=== PATIENT | female | born 1940 | race Caucasian/White ===

== ENCOUNTER → 2018-07-27 16:07 | Outpatient (CLI) | payer MEDICARE, OTHER ==
[2013-12-26 13:19] VITALS: BMI 27.4
[~2018-07-27 16:07] MED LIST: BENADRYL INJ50 MG/ML IM; BOUDREAUXS113 GM TP; CENTRUM SILVER1 TA2 PO; COUMADIN4 MG PO; COUMADIN5 MG PO; COZAAR100 MG PO; DILAUDID4 MG PO; DILAUDID8 MG PO; FISH OIL 1,0001 CA1 PO; METAMUCIL1042 GM PO; MIRALAX17 GM PO; MS CONTIN15 MG PO; MULTI-DAY VITAM1 TAB PO; NARCAN INJ0.4 MG/ML IV; NEXIUM40 MG PO; OMEGA-3100 MG PO; PREMARIN45 GM VG; SENOKOT-S TABLE1 TAB PO; TYLENOL 325 MG325 MG PO; ZOFRAN4 MG PO
== END | disposition home or self-care (01) ==
LOC: D.MAMMO 13:45
DX: Z12.31 Encounter for screening mammogram for malignant neoplasm of breast (principal)